=== PATIENT | female | born 1990 | race Caucasian/White ===

== ENCOUNTER 2019-05-05 02:24 | Inpatient (IN) | payer OTHER ==
[2019-05-05] MEDS ORDERED: Butorphanol 1 MG/ML SDV IVPUSH PRN (03:30)
[2019-05-05] MEDS ORDERED: Carboprost Tromethamine 250 MCG/1 ML Amp IM PRN (03:30)
[2019-05-05] MEDS ORDERED: Nalbuphine 10 MG/1 ML Vial IV PRN (03:30)
[2019-05-05] MEDS ORDERED: Sodium Chloride 0.9% 10 ML Syringe FLUSH PRN (03:30)
[2019-05-05] MEDS ORDERED: Sodium Chloride 0.9% 2.5 ML Syringe FLUSH PRN (03:30)
[2019-05-05] MEDS ORDERED: Tranexamic Acid 1,000 MG in Sodium Chloride 0.9% 100 ML IV PRN (03:30)
[2019-05-05] MEDS ORDERED: Lidocaine 1% 50 ML MDV INJECT PRN (03:30)
[2019-05-05] MEDS ORDERED: Oxytocin/0.9 % Sodium Chloride 30 UNIT/500 ML BAG IV SCH ×2 (03:30→12:00)
[2019-05-05] MEDS ORDERED: Sodium Chloride 0.9% 10 ML SDV IV PRN (03:30)
[2019-05-05] MEDS ORDERED: Methylergonovine 0.2 MG/1 ML Amp IM PRN (03:30)
[2019-05-05] MEDS ORDERED: Water For Irrigation,Sterile 1,000 ML Container IRR PRN (03:30)
[2019-05-05] MEDS ORDERED: Misoprostol 200 MCG Tab PO PRN (03:30)
[2019-05-05 04:50] LABS: BLOOD UREA NITROGEN,BUN 13 mg/dL (7.0-18.0); CARBON DIOXIDE,CO2 19.5 mmol/L (21.0-32.0); CHLORIDE,CL 105 mmol/L (98-107); GLUCOSE RANDOM 98 mg/dL (74-106); POTASSIUM,K 3.7 mmol/L (3.5-5.1); SODIUM,NA 137 mmol/L (136-145)
[2019-05-05] MEDS: Lactated Ringers 1,000 ML IV SCH ×3 (08:16→16:00)
[2019-05-05] MEDS ORDERED: fentaNYL 100 MCG/2 ML SDV ONE ×2 (08:57→16:57)
[2019-05-05] MEDS ORDERED: Ropivacaine HCl/PF 100 ML ONE ×2 (08:58→16:57)
--- NOTE | 2019-05-05 09:15 | PCM.PREANE ---
Preanesthetic Assessment - Anesthesia/Transfusion/Family Hx Anesthesia History: Prior Anesthesia Without Reaction Family History of Anesthesia Reaction: No - Review of Systems General: No Symptoms Pulmonary: No Symptoms Cardiovascular: No Symptoms Gastrointestinal: No Symptoms Neurological: No Symptoms - Physical Assessment NPO Status Date: 05/05/19 NPO Status Time: 00:05 Height: 1.8 m Weight: 80.286 kg ASA Class: 1 - Lab Values: Laboratory Last Values WBC 8.18 K/uL (4.0-11.0) 05/05/19 03:45 RBC 3.93 M/uL (4.30-5.90) L 05/05/19 03:45 Hgb 11.2 g/dL (12.0-16.0) L 05/05/19 03:45 Hct 32.8 % (36.0-46.0) L 05/05/19 03:45 MCV 83.5 fL (80.0-98.0) 05/05/19 03:45 MCH 28.5 pg (27.0-32.0) 05/05/19 03:45 MCHC 34.1 g/dL (31.0-37.0) 05/05/19 03:45 RDW Std Deviation 39.0 fl (28.0-62.0) 05/05/19 03:45 RDW Coeff of Taj 13 % (11.0-15.0) 05/05/19 03:45 Plt Count 191 K/uL (150-400) 05/05/19 03:45 MPV 11.60 fL (7.40-12.00) 05/05/19 03:45 Nucleated RBC % 0.0 /100WBC 05/05/19 03:45 Nucleated RBCs # 0 K/uL 05/05/19 03:45 Sodium 137 mmol/L (136-145) 05/05/19 03:45 Potassium 3.7 mmol/L (3.5-5.1) 05/05/19 03:45 Chloride 105 mmol/L (98-107) 05/05/19 03:45 Carbon Dioxide 19.5 mmol/L (21.0-32.0) L 05/05/19 03:45 BUN 13 mg/dL (7.0-18.0) 05/05/19 03:45 Creatinine 0.8 mg/dL (0.6-1.0) 05/05/19 03:45 Est Cr Clr Drug Dosing 115.97 mL/min 05/05/19 03:45 Estimated GFR (MDRD) > 60.0 ml/min 05/05/19 03:45 Glucose 98 mg/dL (74-106) 05/05/19 03:45 Uric Acid 5.0 mg/dL (2.6-7.2) 05/05/19 03:45 Calcium 8.1 mg/dL (8.5-10.1) L 05/05/19 03:45 Total Bilirubin 0.2 mg/dL (0.2-1.0) 05/05/19 03:45 AST 48 IU/L (15-37) H 05/05/19 03:45 ALT 41 IU/L (14-63) 05/05/19 03:45 Alkaline Phosphatase 206 U/L (46-116) H 05/05/19 03:45 Total Protein 6.2 g/dL (6.4-8.2) L 05/05/19 03:45 Albumin 2.8 g/dL (3.4-5.0) L 05/05/19 03:45 Globulin 3.4 g/dL (2.6-4.0) 05/05/19 03:45 Albumin/Globulin Ratio 0.8 (0.9-1.6) L 05/05/19 03:45 Urine Color YELLOW 05/05/19 04:35 Urine Appearance CLEAR 05/05/19 04:35 Urine pH 7.0 (5.0-8.0) 05/05/19 04:35 Ur Specific [place] 1.025 (1.001-1.035) 05/05/19 04:35 Urine Protein 100 mg/dL (NEGATIVE) H 05/05/19 04:35 Urine Glucose (UA) NEGATIVE mg/dL (NEGATIVE) 05/05/19 04:35 Urine Ketones NEGATIVE mg/dL (NEGATIVE) 05/05/19 04:35 Urine Occult Blood NEGATIVE (NEGATIVE) 05/05/19 04:35 Urine Nitrite NEGATIVE (NEGATIVE) 05/05/19 04:35 Urine Bilirubin NEGATIVE (NEGATIVE) 05/05/19 04:35 Urine Urobilinogen 0.2 EU/dL (<2.0) 05/05/19 04:35 Ur Leukocyte Esterase NEGATIVE (NEGATIVE) 05/05/19 04:35 Ur Random Creatinine 136.6 mg/dL 05/05/19 04:35 U Random Total Protein 132.1 mg/dL (<11.9) H 05/05/19 04:35 Protein/Creatinin Ratio 1.0 05/05/19 04:35 Blood Type A POSITIVE 05/05/19 03:45 Antibody Screen NEGATIVE 05/05/19 03:45 - Allergies Allergies/Adverse Reactions: Allergies Allergy/AdvReac Type Severity Reaction Status Date / Time No Known Allergies Allergy Verified 05/05/19 03:00 - Acknowledgements Anesthesia Type Planned: Epidural Pt an Appropriate Candidate for the Planned Anesthesia: Yes Alternatives and Risks of Anesthesia Discussed w Pt/Guardian: Yes Pt/Guardian Understands and Agrees with Anesthesia Plan: Yes PreAnesthesia Questionnaire - Past Health History Medical/Surgical History: Denies Medical/Surgical History [employer] History: Reports: Spontaneous - SUBSTANCE USE Smoking Status *Q: Never Smoker Tobacco Use Within Last Twelve Months: No Second Hand Smoke Exposure: No Recreational Drug Use History: No - CURRENT (IN HOUSE) MEDS Current Meds: Current Medications Butorphanol Tartrate (Stadol) 1 mg IVPUSH ASDIRECTED PRN PRN Reason: Pain Carboprost Tromethamine (Hemabate Ds) 250 mcg IM ASDIRECTED PRN PRN Reason: Post Hemorrhage Lactated Ringer's (Ringers, Lactated) 1,000 mls @ 150 mls/hr IV ASDIRECTED ESTEFANIA Oxytocin/Sodium Chloride (Oxytocin 30 Unit/500 Ml-Ns) 30 unit in 500 mls @ 999 mls/hr IV TITRATE ESTEFANIA Tranexamic Acid 1,000 mg/ (Sodium Chloride) 110 mls @ 660 mls/hr IV ONETIME PRN PRN Reason: Bleeding Lidocaine HCl (Xylocaine 1%) 50 ml INJECT ONETIME PRN PRN Reason: Laceration repair Methylergonovine Maleate (Methergine) 0.2 mg IM ASDIRECTED PRN PRN Reason: Post Hemorrhage Misoprostol (Cytotec) 200 mcg PO ONETIME PRN PRN Reason: Post Hemorrhage Nalbuphine HCl (Nubain) 10 mg IV ASDIRECTED PRN PRN Reason: Pain (severe 7-10) Sodium Chloride (Saline Flush) 10 ml FLUSH ASDIRECTED PRN PRN Reason: Keep Vein Open Sodium Chloride (Saline Flush) 2.5 ml FLUSH ASDIRECTED PRN PRN Reason: Keep Vein Open Sodium Chloride (Normal Saline) 10 ml IV ASDIRECTED PRN PRN Reason: IV Use Sterile Water (Sterile Water For Irrigation) 1,000 ml IRR ASDIRECTED PRN PRN Reason: delivery Discontinued Medications Fentanyl (Sublimaze) Confirm Administered Dose 100 mcg .ROUTE .STK-MED ONE Stop: 05/05/19 08:58 Ropivacaine (Naropin 0.2%) Confirm Administered Dose 100 mls @ as directed .ROUTE .STK-MED ONE Stop: 05/05/19 08:59
--- NOTE | 2019-05-05 09:18 | PCM.PRNOTE ---
- Free Text/Narrative Note: Anes Note Patient requests epidural for L&D. Sitting position. Level L3-L4 midline approach. Sterile technique. Chloraprep scrub to lumbar area. Sterile fenestrated drape applied. Epidural sace easily achieved single attempt with ease using BRENDAN technique. BRENDAN at 3 cm. Cath threaded 5 cm with ease. Secured at skin at 9 cm using sterile clear adhesive dressing. Test 0910 3 cc 1.5% lido with epi negative. Load 0912 10 cc 0.2% ropiviciane with 1 mcg cc fentanyl/cc inslow divided doses. 0916 pump started wtih 90 cc same solution. Rate is 8 cc hr with 6 cc q 20 min prn bolus. Tenzin well. Time with patient [id number]
--- NOTE | 2019-05-05 17:06 | PCM.PRNOTE ---
- Free Text/Narrative Note: Anes Note Epidural Bag change Epidural infusion bag has completed. A new 100 cc bag of 02.% ropiviciane with 1 mcg/cc fentanyl was placed along with new tubing. Rate is 8 cc hr with 6 cc q 20 min prn bolus. Time with patient [id number] Casa Hernandez CRNA
[2019-05-05] MEDS ORDERED: Docusate Sodium 100 MG Cap PO PRN (19:04)
[2019-05-05] MEDS ORDERED: Acetaminophen 500 MG Tab PO PRN ×2 (19:04)
[2019-05-05] MEDS ORDERED: Witch Hazel Medicated Pads 40/Jar TOP PRN (19:04)
[2019-05-05] MEDS ORDERED: Ibuprofen 400 MG Tab PO PRN (19:04)
[2019-05-05] MEDS ORDERED: Ibuprofen 800 MG Tab PO PRN (19:04)
[2019-05-05] MEDS ORDERED: Benzocaine/Menthol 20%-0.5% Spray 78 GM Cannister TOP PRN (19:04)
[2019-05-05] MEDS ORDERED: oxyCODONE 5 MG Tab PO PRN (19:04)
[2019-05-05] MEDS ORDERED: Bisacodyl 10 MG Supp RECTAL PRN (19:04)
[2019-05-05] MEDS ORDERED: Lanolin 100% Cream 7 GM Tube TOP PRN (19:04)
--- NOTE | 2019-05-05 19:09 | PCM.DEL ---
L & D Note - General Info Date of Service: 05/05/19 - Delivery Note Labor: Augmented by ARM, Augmented by Oxytocin Delivery Outcome: Livebirth Infant Delivery Method: Spontaneous Vaginal Delivery-Single Presentation: Right Occiput Anterior (BRIANNA) Nuchal Cord: None Anesthesia Type: Epidural Anesthetic: Lidocaine (Xylocaine) 1% Plain Local Anesthetic Volume: 5cc Amniotic Fluid Description: Clear Episiotomy Type: None Laceration: 2nd Degree Suture type: Other (monocryl) Suture size: 2-0 Placenta: Intact Cord: 3 Vessels Estimated Blood Loss: 300 Resuscitation Needed: No Score 1 min: 9 Score 5 min: 9 Delivery Comments (Free Text/Narrative):: Live female delivered at 610pm . 9/9 weight 4080g - General Info Date of Service: 05/05/19 - Patient Data Weight - Most Recent: 80.286 kg Lab Results Last 24 Hours: Laboratory Results - last 24 hr 05/05/19 05/05/19 05/05/19 Range/Units 03:45 03:45 03:45 WBC 8.18 (4.0-11.0) K/uL RBC 3.93 L (4.30-5.90) M/uL Hgb 11.2 L (12.0-16.0) g/dL Hct 32.8 L (36.0-46.0) % MCV 83.5 (80.0-98.0) fL MCH 28.5 (27.0-32.0) pg MCHC 34.1 (31.0-37.0) g/dL RDW Std Deviation 39.0 (28.0-62.0) fl RDW Coeff of Taj 13 (11.0-15.0) % Plt Count 191 (150-400) K/uL MPV 11.60 (7.40-12.00) fL Nucleated RBC % 0.0 /100WBC Nucleated RBCs # 0 K/uL Sodium 137 (136-145) mmol/L Potassium 3.7 (3.5-5.1) mmol/L Chloride 105 (98-107) mmol/L Carbon Dioxide 19.5 L (21.0-32.0) mmol/L BUN 13 (7.0-18.0) mg/dL Creatinine 0.8 (0.6-1.0) mg/dL Est Cr Clr Drug Dosing 115.97 mL/min Estimated GFR (MDRD) > 60.0 ml/min Glucose 98 (74-106) mg/dL Uric Acid 5.0 (2.6-7.2) mg/dL Calcium 8.1 L (8.5-10.1) mg/dL Total Bilirubin 0.2 (0.2-1.0) mg/dL AST 48 H (15-37) IU/L ALT 41 (14-63) IU/L Alkaline Phosphatase 206 H (46-116) U/L Total Protein 6.2 L (6.4-8.2) g/dL Albumin 2.8 L (3.4-5.0) g/dL Globulin 3.4 (2.6-4.0) g/dL Albumin/Globulin Ratio 0.8 L (0.9-1.6) Urine Color Urine Appearance Urine pH (5.0-8.0) Ur Specific [place] (1.001-1.035) Urine Protein (NEGATIVE) mg/dL Urine Glucose (UA) (NEGATIVE) mg/dL Urine Ketones (NEGATIVE) mg/dL Urine Occult Blood (NEGATIVE) Urine Nitrite (NEGATIVE) Urine Bilirubin (NEGATIVE) Urine Urobilinogen (<2.0) EU/dL Ur Leukocyte Esterase (NEGATIVE) Ur Random Creatinine mg/dL U Random Total Protein (<11.9) mg/dL Protein/Creatinin Ratio Blood Type A POSITIVE Antibody Screen NEGATIVE 05/05/19 05/05/19 Range/Units 04:35 04:35 WBC (4.0-11.0) K/uL RBC (4.30-5.90) M/uL Hgb (12.0-16.0) g/dL Hct (36.0-46.0) % MCV (80.0-98.0) fL MCH (27.0-32.0) pg MCHC (31.0-37.0) g/dL RDW Std Deviation (28.0-62.0) fl RDW Coeff of Taj (11.0-15.0) % Plt Count (150-400) K/uL MPV (7.40-12.00) fL Nucleated RBC % /100WBC Nucleated RBCs # K/uL Sodium (136-145) mmol/L Potassium (3.5-5.1) mmol/L Chloride (98-107) mmol/L Carbon Dioxide (21.0-32.0) mmol/L BUN (7.0-18.0) mg/dL Creatinine (0.6-1.0) mg/dL Est Cr Clr Drug Dosing mL/min Estimated GFR (MDRD) ml/min Glucose (74-106) mg/dL Uric Acid (2.6-7.2) mg/dL Calcium (8.5-10.1) mg/dL Total Bilirubin (0.2-1.0) mg/dL AST (15-37) IU/L ALT (14-63) IU/L Alkaline Phosphatase (46-116) U/L Total Protein (6.4-8.2) g/dL Albumin (3.4-5.0) g/dL Globulin (2.6-4.0) g/dL Albumin/Globulin Ratio (0.9-1.6) Urine Color YELLOW Urine Appearance CLEAR Urine pH 7.0 (5.0-8.0) Ur Specific [place] 1.025 (1.001-1.035) Urine Protein 100 H (NEGATIVE) mg/dL Urine Glucose (UA) NEGATIVE (NEGATIVE) mg/dL Urine Ketones NEGATIVE (NEGATIVE) mg/dL Urine Occult Blood NEGATIVE (NEGATIVE) Urine Nitrite NEGATIVE (NEGATIVE) Urine Bilirubin NEGATIVE (NEGATIVE) Urine Urobilinogen 0.2 (<2.0) EU/dL Ur Leukocyte Esterase NEGATIVE (NEGATIVE) Ur Random Creatinine 136.6 mg/dL U Random Total Protein 132.1 H (<11.9) mg/dL Protein/Creatinin Ratio 1.0 Blood Type Antibody Screen Med Orders - Current: Current Medications Acetaminophen (Tylenol Extra Strength) 500 mg PO Q4H PRN PRN Reason: Pain Acetaminophen (Tylenol Extra Strength) 1,000 mg PO Q4H PRN PRN Reason: Pain Benzocaine/Menthol (Dermoplast Pain Relief 20%-0.5% [place]) 78 gm TOP ASDIRECTED PRN PRN Reason: Perineal Comfort Measure Bisacodyl (Dulcolax) 10 mg RECTAL ONETIME PRN PRN Reason: Constipation Butorphanol Tartrate (Stadol) 1 mg IVPUSH ASDIRECTED PRN PRN Reason: Pain Carboprost Tromethamine (Hemabate Ds) 250 mcg IM ASDIRECTED PRN PRN Reason: Post Hemorrhage Docusate Sodium (Colace) 100 mg PO BID PRN PRN Reason: Constipation Emollient Ointment (Lansinoh Hpa) 0 gm TOP ASDIRECTED PRN PRN Reason: Sore Nipples Lactated Ringer's (Ringers, Lactated) 1,000 mls @ 150 mls/hr IV ASDIRECTED ESTEFANIA Last Admin: 05/05/19 16:00 Dose: 150 mls/hr Oxytocin/Sodium Chloride (Oxytocin 30 Unit/500 Ml-Ns) 30 unit in 500 mls @ 999 mls/hr IV TITRATE [facility] Tranexamic Acid 1,000 mg/ (Sodium Chloride) 110 mls @ 660 mls/hr IV ONETIME PRN PRN Reason: Bleeding Oxytocin/Sodium Chloride (Oxytocin 30 Unit/500 Ml-Ns) 30 unit in 500 mls @ 2 mls/hr IV TITRATE [facility]; Protocol Last Infusion: 05/05/19 18:11 Dose: 999 mls/hr Ibuprofen (Motrin) 400 mg PO Q4H PRN PRN Reason: Pain Ibuprofen (Motrin) 800 mg PO Q6H PRN PRN Reason: Pain Lidocaine HCl (Xylocaine 1%) 50 ml INJECT ONETIME PRN PRN Reason: Laceration repair Last Admin: 05/05/19 18:20 Dose: 50 ml Methylergonovine Maleate (Methergine) 0.2 mg IM ASDIRECTED PRN PRN Reason: Post Hemorrhage Misoprostol (Cytotec) 200 mcg PO ONETIME PRN PRN Reason: Post Hemorrhage Nalbuphine HCl (Nubain) 10 mg IV ASDIRECTED PRN PRN Reason: Pain (severe 7-10) Oxycodone HCl (Oxycodone) 5 mg PO Q2H PRN PRN Reason: Pain Sodium Chloride (Saline Flush) 10 ml FLUSH ASDIRECTED PRN PRN Reason: Keep Vein Open Sodium Chloride (Saline Flush) 2.5 ml FLUSH ASDIRECTED PRN PRN Reason: Keep Vein Open Sodium Chloride (Normal Saline) 10 ml IV ASDIRECTED PRN PRN Reason: IV Use Sterile Water (Sterile Water For Irrigation) 1,000 ml IRR ASDIRECTED PRN PRN Reason: delivery Last Admin: 05/05/19 18:20 Dose: 1,000 ml Witch Nidia (Tucks) 1 pad TOP ASDIRECTED PRN PRN Reason: comfort care Discontinued Medications Fentanyl (Sublimaze) Confirm Administered Dose 100 mcg .ROUTE .STK-MED ONE Stop: 05/05/19 08:58 Last Admin: 05/05/19 09:28 Dose: Not Given Fentanyl (Sublimaze) Confirm Administered Dose 100 mcg .ROUTE .STK-MED ONE Stop: 05/05/19 16:58 Ropivacaine (Naropin 0.2%) Confirm Administered Dose 100 mls @ as directed .ROUTE .STK-MED ONE Stop: 05/05/19 08:59 Last Admin: 05/05/19 09:28 Dose: Not Given Ropivacaine (Naropin 0.2%) Confirm Administered Dose 100 mls @ as directed .ROUTE .STConvene-MED ONE Stop: 05/05/19 16:58 - Problem List & Annotations (1) Vaginal delivery SNOMED Code(s): 938237671 Code(s): O80 - ENCOUNTER FOR FULL-TERM UNCOMPLICATED DELIVERY Status: Acute Current Visit: Yes - Problem List Review Problem List Initiated/Reviewed/Updated: Yes - My Orders Last 24 Hours: My Active Orders 05/05/19 03:01 Non Stress Test [RC] PER UNIT ROUTINE Up ad Mary Lou [RC] ASDIRECTED Vaginal Exam [RC] Click to Edit Vital Signs [RC] PER UNIT ROUTINE 05/05/19 03:30 Patient Status [ADT] Routine Heart Tones [RC] CONTINUOUS Non Stress Test [RC] PER UNIT ROUTINE May Shower [RC] ASDIRECTED Notify Provider [RC] PRN Up ad Mary Lou [RC] ASDIRECTED Vaginal Exam [RC] PRN Vital Signs [RC] PER UNIT ROUTINE Butorphanol [Stadol] 1 mg IVPUSH ASDIRECTED PRN Carboprost Tromethamine [Hemabate DS] 250 mcg IM ASDIRECTED PRN Lactated Ringers [Ringers, Lactated] 1,000 ml IV ASDIRECTED Lidocaine 1% [Xylocaine 1%] 50 ml INJECT ONETIME PRN Methylergonovine [Methergine] 0.2 mg IM ASDIRECTED PRN Nalbuphine [Nubain] 10 mg IV ASDIRECTED PRN Oxytocin/0.9 % Sodium Chloride [Oxytocin 30 Unit/500 ML-NS] 30 unit in 500 ml IV TITRATE Sodium Chloride 0.9% [Normal Saline] 10 ml IV ASDIRECTED PRN Sodium Chloride 0.9% [Saline Flush] 10 ml FLUSH ASDIRECTED PRN Sodium Chloride 0.9% [Saline Flush] 2.5 ml FLUSH ASDIRECTED PRN Tranexamic Acid [Cyklokapron] 1,000 mg Sodium Chloride 0.9% [Normal Saline] 100 ml IV ONETIME Water For Irrigation,Sterile [Sterile Water for Irrigation] 1,000 ml IRR ASDIRECTED PRN miSOPROStoL [Cytotec] 200 mcg PO ONETIME PRN Peripheral IV Insertion Adult [OM.PC] Routine 05/05/19 03:45 RAPID PLASMA REAGIN, QUANT [REF] Routine 05/05/19 04:35 PROTEIN/CREATININE RATIO,URINE [URCHEM] Routine UA W/O MICROSCOPIC [URIN] Routine 05/05/19 12:00 Oxytocin/0.9 % Sodium Chloride [Oxytocin 30 Unit/500 ML-NS] 30 unit in 500 ml IV TITRATE 05/05/19 19:04 Patient Status [ADT] Routine May Shower [RC] ASDIRECTED Up ad Mary Lou [RC] ASDIRECTED Acetaminophen [Tylenol Extra Strength] 1,000 mg PO Q4H PRN Acetaminophen [Tylenol Extra Strength] 500 mg PO Q4H PRN Benzocaine/Menthol [Dermoplast Pain Relief 20%-0.5% [place]] 78 gm TOP ASDIRECTED PRN Bisacodyl [Dulcolax] 10 mg RECTAL ONETIME PRN Docusate Sodium [Colace] 100 mg PO BID PRN Ibuprofen [Motrin] 400 mg PO Q4H PRN Ibuprofen [Motrin] 800 mg PO Q6H PRN Lanolin [Lansinoh HPA] See Dose Instructions TOP ASDIRECTED PRN Witch Nidia [Tucks] 1 pad TOP ASDIRECTED PRN oxyCODONE 5 mg PO Q2H PRN Assess Lochia [WOMSER] Per Unit Routine Assess Uterine Involution [WOMSER] Per Unit Routine Peripheral IV Discontinue [OM.PC] Routine 05/06/19 05:11 HEMOGLOBIN/HEMATOCRIT,HH [HEME] Timed
--- NOTE | 2019-05-06 01:53 | OR ---
SURGEON: KEVIN ISAAC DATE OF PROCEDURE:05/05/2019 PREOPERATIVE DIAGNOSIS: A 29-year-old G2, P0-0-1-0 at 39 weeks 3 days in early labor. POSTOPERATIVE DIAGNOSIS: A 29-year-old G2, P0-0-1-0 at 39 weeks 3 days in early labor. PROCEDURE: Normal spontaneous vaginal delivery. Repair of second-degree laceration. ESTIMATED BLOOD LOSS: 300. ANESTHESIA: Epidural. IV FLUIDS: Pitocin running. NOTES AND FINDINGS: A live female delivered at 6:10 p.m. score is 9 and 9. Weight is 4080 g. PROCEDURE: She is a low risk 29-year-old G2, P-0-0-1-0 at 39 weeks 3 days, came in complaining of labor pain. She was about 4 cm dilated. She had AROM done and clear fluid was noted. Because she did not make cervical change, Pitocin was started after which she made change and became fully dilated. The patient being fully dilated, she was encouraged to push. With good pushing effort, she delivered the head subsequently by the anterior and posterior shoulder. The body of the infant was delivered. was placed on maternal abdomen. Delayed cord clamping was observed. The cord blood gases were obtained. Placenta was delivered via controlled cord traction. The perineum was inspected and noted to have a second - degree laceration which was repaired in layers. The bimanual massage was done and the uterus was noted to be firm. The perineum was repaired with 2-0 Monocryl after infiltration of 1% lidocaine and the incision looked hemostatic. All instrument and pad counts were correct x2. The patient tolerated the procedure well and was left in Labor and Delivery room in stable condition. RICARDO BOWERS /[id number] JUDY
[2019-05-06 06:39] LABS: BLOOD UREA NITROGEN,BUN 9 mg/dL (7.0-18.0); CARBON DIOXIDE,CO2 21.8 mmol/L (21.0-32.0); CHLORIDE,CL 108 mmol/L (98-107); GLUCOSE RANDOM 84 mg/dL (74-106); POTASSIUM,K 4.2 mmol/L (3.5-5.1); SODIUM,NA 139 mmol/L (136-145)
--- NOTE | 2019-05-06 07:14 | PCM.POSTAN ---
POST ANESTHESIA ASSESSMENT - MENTAL STATUS Mental Status: Alert - VITAL SIGNS Vital Signs: Last Vital Signs Temp 36.9 C 05/06/19 00:00 Pulse 79 05/06/19 00:00 Resp 16 05/06/19 00:00 BP 95/74 05/06/19 00:00 Pulse Ox 97 05/06/19 00:00 - RESPIRATORY Respiratory Status: Respiratory Rate WNL - CARDIOVASCULAR CV Status: Pulse Rate WNL - GASTROINTESTINAL GI Status: No Symptoms - POST OP HYDRATION Hydration Status: Adequate & Stable
--- NOTE | 2019-05-06 07:15 | PCM48HPAN ---
Post Anesthesia Note - EVALUATION WITHIN 48HRS OF ANESTHETIC Vital Signs in Normal Range: Yes Patient Participated in Evaluation: Yes Respiratory Function Stable: Yes Airway Patent: Yes Cardiovascular Function Stable: Yes Hydration Status Stable: Yes Pain Control Satisfactory: Yes Nausea and Vomiting Control Satisfactory: Yes Mental Status Recovered: Yes Vital Signs: Last Vital Signs Temp 36.9 C 05/06/19 00:00 Pulse 79 05/06/19 00:00 Resp 16 05/06/19 00:00 BP 95/74 05/06/19 00:00 Pulse Ox 97 05/06/19 00:00
--- NOTE | 2019-05-06 09:29 | PCM.PNPP ---
- General Info Date of Service: 05/06/19 Functional Status: Reports: Pain Controlled, Tolerating Diet, Ambulating, Urinating - Review of Systems General: Reports: No Symptoms HEENT: Reports: No Symptoms Pulmonary: Reports: No Symptoms Cardiovascular: Reports: No Symptoms Gastrointestinal: Reports: No Symptoms Genitourinary: Reports: No Symptoms Musculoskeletal: Reports: No Symptoms Skin: Reports: No Symptoms Neurological: Reports: No Symptoms Psychiatric: Reports: No Symptoms - General Info Date of Service: 05/06/19 - Patient Data Vital Signs - Most Recent: Last Vital Signs Temp 36.9 C 05/06/19 00:00 Pulse 79 05/06/19 00:00 Resp 16 05/06/19 00:00 BP 95/74 05/06/19 00:00 Pulse Ox 97 05/06/19 00:00 Weight - Most Recent: 80.286 kg I&O - Last 24 Hours: Intake & Output 05/05/19 05/06/19 05/06/19 22:59 06:59 14:59 Output Total 1250 Balance -1250 Lab Results - Last 24 Hours: Laboratory Results - last 24 hr 05/06/19 05/06/19 Range/Units 05:50 05:50 Hgb 9.3 L (12.0-16.0) g/dL Hct 27.7 L (36.0-46.0) % Sodium 139 (136-145) mmol/L Potassium 4.2 (3.5-5.1) mmol/L Chloride 108 H (98-107) mmol/L Carbon Dioxide 21.8 (21.0-32.0) mmol/L BUN 9 (7.0-18.0) mg/dL Creatinine 0.7 (0.6-1.0) mg/dL Est Cr Clr Drug Dosing 132.54 mL/min Estimated GFR (MDRD) > 60.0 ml/min Glucose 84 (74-106) mg/dL Calcium 7.6 L (8.5-10.1) mg/dL Total Bilirubin 0.2 (0.2-1.0) mg/dL AST 40 H (15-37) IU/L ALT 32 (14-63) IU/L Alkaline Phosphatase 150 H (46-116) U/L Total Protein 4.8 L (6.4-8.2) g/dL Albumin 2.1 L (3.4-5.0) g/dL Globulin 2.7 (2.6-4.0) g/dL Albumin/Globulin Ratio 0.8 L (0.9-1.6) Med Orders - Current: Current Medications Acetaminophen (Tylenol Extra Strength) 500 mg PO Q4H PRN PRN Reason: Pain Last Admin: 05/06/19 03:14 Dose: 500 mg Acetaminophen (Tylenol Extra Strength) 1,000 mg PO Q4H PRN PRN Reason: Pain Benzocaine/Menthol (Dermoplast Pain Relief 20%-0.5% [place]) 78 gm TOP ASDIRECTED PRN PRN Reason: Perineal Comfort Measure Last Admin: 05/05/19 22:04 Dose: 1 canister Bisacodyl (Dulcolax) 10 mg RECTAL ONETIME PRN PRN Reason: Constipation Butorphanol Tartrate (Stadol) 1 mg IVPUSH ASDIRECTED PRN PRN Reason: Pain Carboprost Tromethamine (Hemabate Ds) 250 mcg IM ASDIRECTED PRN PRN Reason: Post Hemorrhage Docusate Sodium (Colace) 100 mg PO BID PRN PRN Reason: Constipation Emollient Ointment (Lansinoh Hpa) 0 gm TOP ASDIRECTED PRN PRN Reason: Sore Nipples Lactated Ringer's (Ringers, Lactated) 1,000 mls @ 150 mls/hr IV ASDIRECTED ESTEFANIA Last Admin: 05/05/19 16:00 Dose: 150 mls/hr Oxytocin/Sodium Chloride (Oxytocin 30 Unit/500 Ml-Ns) 30 unit in 500 mls @ 999 mls/hr IV TITRATE ESTEFANIA Tranexamic Acid 1,000 mg/ (Sodium Chloride) 110 mls @ 660 mls/hr IV ONETIME PRN PRN Reason: Bleeding Oxytocin/Sodium Chloride (Oxytocin 30 Unit/500 Ml-Ns) 30 unit in 500 mls @ 2 mls/hr IV TITRATE ESTEFANIA; Protocol Last Infusion: 05/05/19 18:11 Dose: 999 mls/hr Ibuprofen (Motrin) 400 mg PO Q4H PRN PRN Reason: Pain Ibuprofen (Motrin) 800 mg PO Q6H PRN PRN Reason: Pain Last Admin: 05/05/19 22:04 Dose: 800 mg Lidocaine HCl (Xylocaine 1%) 50 ml INJECT ONETIME PRN PRN Reason: Laceration repair Last Admin: 05/05/19 18:20 Dose: 50 ml Methylergonovine Maleate (Methergine) 0.2 mg IM ASDIRECTED PRN PRN Reason: Post Hemorrhage Misoprostol (Cytotec) 200 mcg PO ONETIME PRN PRN Reason: Post Hemorrhage Nalbuphine HCl (Nubain) 10 mg IV ASDIRECTED PRN PRN Reason: Pain (severe 7-10) Oxycodone HCl (Oxycodone) 5 mg PO Q2H PRN PRN Reason: Pain Sodium Chloride (Saline Flush) 10 ml FLUSH ASDIRECTED PRN PRN Reason: Keep Vein Open Sodium Chloride (Saline Flush) 2.5 ml FLUSH ASDIRECTED PRN PRN Reason: Keep Vein Open Sodium Chloride (Normal Saline) 10 ml IV ASDIRECTED PRN PRN Reason: IV Use Sterile Water (Sterile Water For Irrigation) 1,000 ml IRR ASDIRECTED PRN PRN Reason: delivery Last Admin: 05/05/19 18:20 Dose: 1,000 ml Witch Nidia (Tucks) 1 pad TOP ASDIRECTED PRN PRN Reason: comfort care Last Admin: 05/05/19 22:05 Dose: 1 tub Discontinued Medications Fentanyl (Sublimaze) Confirm Administered Dose 100 mcg .ROUTE .STK-MED ONE Stop: 05/05/19 08:58 Last Admin: 05/05/19 09:28 Dose: Not Given Fentanyl (Sublimaze) Confirm Administered Dose 100 mcg .ROUTE .STK-MED ONE Stop: 05/05/19 16:58 Last Admin: 05/05/19 19:22 Dose: Not Given Ropivacaine (Naropin 0.2%) Confirm Administered Dose 100 mls @ as directed .ROUTE .STK-MED ONE Stop: 05/05/19 08:59 Last Admin: 05/05/19 09:28 Dose: Not Given Ropivacaine (Naropin 0.2%) Confirm Administered Dose 100 mls @ as directed .ROUTE .STK-MED ONE Stop: 05/05/19 16:58 Last Admin: 05/05/19 19:22 Dose: Not Given - Interaction Support Person: - Recovery Exam Fundal Tone: Firm Fundal Level: 1 Fingerbreadths Below Umbilicus Fundal Placement: Midline Lochia Amount: Small Lochia Color: Rubra/Red Perineum Description: Intact, Minimal Bruising/Swelling Episiotomy/Laceration: Approximated Bladder Status: Voiding Urinary Elimination: Voided - Exam General: Alert HEENT: Pupils Equal Neck: Supple Lungs: Clear to Auscultation Cardiovascular: Regular Rate, Regular Rhythm GI/Abdominal Exam: Normal Bowel Sounds Extremities: Normal Inspection Neurological: No New Focal Deficit Psy/Mental Status: Alert - Problem List & Annotations (1) Vaginal delivery SNOMED Code(s): 509105089 Code(s): O80 - ENCOUNTER FOR FULL-TERM UNCOMPLICATED DELIVERY Status: Acute Current Visit: Yes - Problem List Review Problem List Initiated/Reviewed/Updated: Yes - My Orders Last 24 Hours: My Active Orders 05/05/19 12:00 Oxytocin/0.9 % Sodium Chloride [Oxytocin 30 Unit/500 ML-NS] 30 unit in 500 ml IV TITRATE 05/05/19 19:04 Patient Status [ADT] Routine May Shower [RC] ASDIRECTED Up ad [place] [RC] ASDIRECTED Acetaminophen [Tylenol Extra Strength] 1,000 mg PO Q4H PRN Acetaminophen [Tylenol Extra Strength] 500 mg PO Q4H PRN Benzocaine/Menthol [Dermoplast Pain Relief 20%-0.5% [place]] 78 gm TOP ASDIRECTED PRN Bisacodyl [Dulcolax] 10 mg RECTAL ONETIME PRN Docusate Sodium [Colace] 100 mg PO BID PRN Ibuprofen [Motrin] 400 mg PO Q4H PRN Ibuprofen [Motrin] 800 mg PO Q6H PRN Lanolin [Lansinoh HPA] See Dose Instructions TOP ASDIRECTED PRN Witch Nidia [Tucks] 1 pad TOP ASDIRECTED PRN oxyCODONE 5 mg PO Q2H PRN Assess Lochia [WOMSER] Per Unit Routine Assess Uterine Involution [WOMSER] Per Unit Routine Peripheral IV Discontinue [OM.PC] Routine - Assessment Assessment:: 29yo P1 PPD1 , Normal lochia , - Plan Plan:: Routine Discharge
--- NOTE | 2019-05-07 09:23 | PCM.PNPP ---
- General Info Date of Service: 05/07/19 Subjective Update: Patient seen at bedside , she denies any complains , she was not discharged yesterday as baby is still under peds observation for hyperbilirubinemia Functional Status: Reports: Pain Controlled, Tolerating Diet, Ambulating, Urinating - Review of Systems General: Reports: No Symptoms HEENT: Reports: No Symptoms Pulmonary: Reports: No Symptoms Cardiovascular: Reports: No Symptoms Gastrointestinal: Reports: No Symptoms Genitourinary: Reports: No Symptoms Musculoskeletal: Reports: No Symptoms Skin: Reports: No Symptoms Neurological: Reports: No Symptoms Psychiatric: Reports: No Symptoms - General Info Date of Service: 05/07/19 - Patient Data Vital Signs - Most Recent: Last Vital Signs Temp 36.6 C 05/07/19 08:00 Pulse 62 05/07/19 08:00 Resp 18 05/07/19 08:00 BP 126/75 05/07/19 08:00 Pulse Ox 98 05/07/19 08:00 Weight - Most Recent: 80.286 kg Med Orders - Current: Current Medications Acetaminophen (Tylenol Extra Strength) 500 mg PO Q4H PRN PRN Reason: Pain Last Admin: 05/06/19 03:14 Dose: 500 mg Acetaminophen (Tylenol Extra Strength) 1,000 mg PO Q4H PRN PRN Reason: Pain Benzocaine/Menthol (Dermoplast Pain Relief 20%-0.5% [place]) 78 gm TOP ASDIRECTED PRN PRN Reason: Perineal Comfort Measure Last Admin: 05/05/19 22:04 Dose: 1 canister Bisacodyl (Dulcolax) 10 mg RECTAL ONETIME PRN PRN Reason: Constipation Butorphanol Tartrate (Stadol) 1 mg IVPUSH ASDIRECTED PRN PRN Reason: Pain Carboprost Tromethamine (Hemabate Ds) 250 mcg IM ASDIRECTED PRN PRN Reason: Post Hemorrhage Docusate Sodium (Colace) 100 mg PO BID PRN PRN Reason: Constipation Emollient Ointment (Lansinoh Hpa) 0 gm TOP ASDIRECTED PRN PRN Reason: Sore Nipples Lactated Ringer's (Ringers, Lactated) 1,000 mls @ 150 mls/hr IV ASDIRECTED ESTEFANIA Last Admin: 05/05/19 16:00 Dose: 150 mls/hr Oxytocin/Sodium Chloride (Oxytocin 30 Unit/500 Ml-Ns) 30 unit in 500 mls @ 999 mls/hr IV TITRATE ESTEFANIA Tranexamic Acid 1,000 mg/ (Sodium Chloride) 110 mls @ 660 mls/hr IV ONETIME PRN PRN Reason: Bleeding Oxytocin/Sodium Chloride (Oxytocin 30 Unit/500 Ml-Ns) 30 unit in 500 mls @ 2 mls/hr IV TITRATE ESTEFANIA; Protocol Last Infusion: 05/05/19 18:11 Dose: 999 mls/hr Ibuprofen (Motrin) 400 mg PO Q4H PRN PRN Reason: Pain Ibuprofen (Motrin) 800 mg PO Q6H PRN PRN Reason: Pain Last Admin: 05/05/19 22:04 Dose: 800 mg Lidocaine HCl (Xylocaine 1%) 50 ml INJECT ONETIME PRN PRN Reason: Laceration repair Last Admin: 05/05/19 18:20 Dose: 50 ml Methylergonovine Maleate (Methergine) 0.2 mg IM ASDIRECTED PRN PRN Reason: Post Hemorrhage Misoprostol (Cytotec) 200 mcg PO ONETIME PRN PRN Reason: Post Hemorrhage Nalbuphine HCl (Nubain) 10 mg IV ASDIRECTED PRN PRN Reason: Pain (severe 7-10) Oxycodone HCl (Oxycodone) 5 mg PO Q2H PRN PRN Reason: Pain Sodium Chloride (Saline Flush) 10 ml FLUSH ASDIRECTED PRN PRN Reason: Keep Vein Open Sodium Chloride (Saline Flush) 2.5 ml FLUSH ASDIRECTED PRN PRN Reason: Keep Vein Open Sodium Chloride (Normal Saline) 10 ml IV ASDIRECTED PRN PRN Reason: IV Use Sterile Water (Sterile Water For Irrigation) 1,000 ml IRR ASDIRECTED PRN PRN Reason: delivery Last Admin: 05/05/19 18:20 Dose: 1,000 ml Witch Nidia (Tucks) 1 pad TOP ASDIRECTED PRN PRN Reason: comfort care Last Admin: 05/05/19 22:05 Dose: 1 tub Discontinued Medications Fentanyl (Sublimaze) Confirm Administered Dose 100 mcg .ROUTE .STK-MED ONE Stop: 05/05/19 08:58 Last Admin: 05/05/19 09:28 Dose: Not Given Fentanyl (Sublimaze) Confirm Administered Dose 100 mcg .ROUTE .STK-MED ONE Stop: 05/05/19 16:58 Last Admin: 05/05/19 19:22 Dose: Not Given Ropivacaine (Naropin 0.2%) Confirm Administered Dose 100 mls @ as directed .ROUTE .STK-MED ONE Stop: 05/05/19 08:59 Last Admin: 05/05/19 09:28 Dose: Not Given Ropivacaine (Naropin 0.2%) Confirm Administered Dose 100 mls @ as directed .ROUTE .STK-MED ONE Stop: 05/05/19 16:58 Last Admin: 05/05/19 19:22 Dose: Not Given - Interaction Support Person: - Recovery Exam Fundal Tone: Firm Fundal Level: 1 Fingerbreadths Below Umbilicus Fundal Placement: Midline Lochia Amount: Small Lochia Color: Rubra/Red Perineum Description: Intact, Minimal Bruising/Swelling Episiotomy/Laceration: Approximated Bladder Status: Nonpalpable Urinary Elimination: Voided - Exam General: Alert, Oriented HEENT: Pupils Equal Neck: Supple Lungs: Clear to Auscultation Cardiovascular: Regular Rate, Regular Rhythm GI/Abdominal Exam: Normal Bowel Sounds Extremities: Normal Inspection Neurological: No New Focal Deficit Psy/Mental Status: Alert - Problem List & Annotations (1) Vaginal delivery SNOMED Code(s): 856865191 Code(s): O80 - ENCOUNTER FOR FULL-TERM UNCOMPLICATED DELIVERY Status: Acute Current Visit: Yes - Problem List Review Problem List Initiated/Reviewed/Updated: Yes - My Orders Last 24 Hours: My Active Orders 05/06/19 09:33 Ready for Discharge [RC] PER UNIT ROUTINE 05/07/19 Breakfast Regular Diet [DIET] - Assessment Assessment:: 29yo P1 PPD2 , Normal lochia , AST trending down Elevated PCR - Plan Plan:: Routine Discharge Will have patient come for BP check in 1 week
== END 2019-05-07 16:45 | disposition home or self-care (01) | DRG 807 ==
LOC: MW.OBCHECK 02:24 → MW.OB 02:25 → OBSVTOIN 18:10 → MW.OBCHECK 18:31 → MW.OB 23:40
PROVIDERS: ADMIT Obstetrics & Gynecology; ATTEND Obstetrics & Gynecology
PROC: 10E0XZZ Delivery of Products of Conception, External Approach (ICD-10-PCS; principal; 2019-05-05)
PROC: 0KQM0ZZ Repair Perineum Muscle, Open Approach (ICD-10-PCS; 2019-05-05)
PROC: 10907ZC Drainage of Amniotic Fluid, Therapeutic from Products of Conception, Via Natural or Artificial Opening (ICD-10-PCS; 2019-05-05)
PROC: 4A1HXCZ Monitoring of Products of Conception, Cardiac Rate, External Approach (ICD-10-PCS; 2019-05-05)
PROC: 3E0R3BZ Introduction of Anesthetic Agent into Spinal Canal, Percutaneous Approach (ICD-10-PCS; 2019-05-05)
PROC: 00HU33Z Insertion of Infusion Device into Spinal Canal, Percutaneous Approach (ICD-10-PCS; 2019-05-05)
DX: O70.1 Second degree perineal laceration during delivery (principal); Z37.0 Single live birth; Z3A.39 39 weeks gestation of pregnancy
CPT/HCPCS: 01967; 36415; 51702; 59025; 59409; 80053; 81003; 82570; 84156; 84550; 85014; 85018; 85027; 86593; 86850; 86900; 86901; A9270-GY; J2001; J2590; J7120